=== PATIENT | female | born 1995 | race Two or more races ===

== ENCOUNTER 2018-03-05 12:08 | Emergency (ER) | payer OTHER ==
[~2018-03-05] VITALS: Ht 154.9 cm; Wt 45.4 kg
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
--- NOTE | 2018-03-05 13:43 | NUR ---
Patient discharged to home in stable condition. Written and verbal after care instructions given. Patient verbalizes understanding of instruction.
[2018-03-05 13:44] VITALS: BP 118/82
== END 2018-03-05 13:45 | disposition home or self-care (01) ==
LOC: ER 12:12
DX: S70.02XA Contusion of left hip, initial encounter (principal); R51 Headache; Z98.890 Other specified postprocedural states; Z41.1 Encounter for cosmetic surgery; V49.49XA Driver injured in collision with other motor vehicles in traffic accident, initial encounter; Y93.89 Activity, other specified; Y92.411 Interstate highway as the place of occurrence of the external cause; Y99.8 Other external cause status
CPT/HCPCS: 73502; A4606; Z7610